=== PATIENT | female | born 2000 | race Caucasian/White ===

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

== ENCOUNTER 2020-01-29 14:10 | Emergency (ER) | payer BC, OTHER ==
[~2020-01-29] VITALS: Ht 170.2 cm; Wt 55.8 kg
[2020-01-29 14:48] LABS: BASOPHILS ABSOLUTE AUTO 0.06 K/mm3 (0.00-0.23); BASOPHILS PERCENT AUTO 0 % (0-2); EOSINOPHILS ABSOLUTE AUTO 0.22 K/mm3 (0.00-0.68); EOSINOPHILS PERCENT AUTO 1 % (0-6); Hematocrit 40.5 % (33.0-51.0); Hemoglobin 13.2 g/dL (11.5-16.0); IMMATURE GRAN PERCENT AUTO 1 % (0-1); LYMPHOCYTES ABSOLUTE AUTO 2.63 K/mm3 (0.84-5.20); LYMPHOCYTES PERCENT AUTO 12 % (21-46); MONOCYTES ABSOLUTE AUTO 1.66 K/mm3 (0.16-1.47); MONOCYTES PERCENT AUTO 8 % (4-13); Mean Corpuscular HGB 31.3 pg (26.0-34.0); Mean Corpuscular HGB Conc 32.6 g/dL (31.5-36.5); Mean Corpuscular Volume 96 fL (80-100); Mean Platelet Volume 9.9 fL (9.1-12.4); NEUTROPHILS ABSOLUTE AUTO 17.31 K/mm3 (1.96-9.15); NEUTROPHILS PERCENT AUTO 79 % (41-73); Platelet Count 299 K/mm3 (150-400); RDW Coefficient Variation 12.5 % (11.7-14.2); RDW Standard Deviation 44.3 fL (35.1-46.3); Red Blood Cell Count 4.22 M/mm3 (3.80-5.20); White Blood Cell Count 21.98 K/mm3 (4.00-11.30)
[2020-01-29 15:23] LABS: Alanine Aminotransfer (ALT/SGP 15 U/L (12-78); Albumin, Blood 3.2 g/dL (3.4-5.0); Albumin/Globulin Ratio 0.8 (0.8-1.8); Alk Phos 118 U/L (45-116); Anion Gap 8 mmol/L (6-16); Aspartate Aminotrans (AST/SGOT 11 U/L (12-37); Bilirubin, Total 0.2 mg/dL (0.1-1.0); Blood Urea Nitrogen 11 mg/dL (8-21); Bun/Creatinine Ratio 17.9 (12.0-20.0); CO2, Blood 26 mmol/L (21-32); Calcium, Blood 8.8 mg/dL (8.5-10.1); Chloride, Blood 104 mmol/L (98-108); Creatinine, Blood 0.61 mg/dL (0.40-1.00); Globulin, Blood 4.1 g/dL (2.2-4.0); Glomerular Filtration Rate >60 (60-); Glucose, Blood 80 mg/dL (70-99); Potassium, Blood 3.4 mmol/L (3.5-5.5); Sodium, Blood 138 mmol/L (136-145); Total Protein, Blood 7.3 g/dL (6.4-8.2)
[2020-01-29] MEDS ORDERED: Cleocin HCl300 MG PO (16:24)
[2020-01-29] MEDS ORDERED: Norco 5-325 Ta1 EACH PO (16:24)
== END 2020-01-29 16:50 | disposition home or self-care (01) ==
LOC: ER 14:10
PROVIDERS: Emergency Medicine
DX: L02.414 Cutaneous abscess of left upper limb (principal); L03.114 Cellulitis of left upper limb; F31.9 Bipolar disorder, unspecified; F43.10 Post-traumatic stress disorder, unspecified; F17.210 Nicotine dependence, cigarettes, uncomplicated
CPT/HCPCS: 10061; 36415; 80053; 85025; 87070; 87075; 87147; 87205; 99283-25; A9270-GY

== ENCOUNTER 2020-04-15 22:58 | Emergency (ER) | payer BC, OTHER ==
[~2020-04-15] VITALS: Ht 165.1 cm; Wt 49.9 kg
[~2020-04-15 22:58] MED LIST changes: +Cleocin HCl300 MG PO; +Norco 5-325 Ta1 EACH PO
[2020-04-15 23:51] LABS: BASOPHILS ABSOLUTE AUTO 0.04 K/mm3 (0.00-0.23); BASOPHILS PERCENT AUTO 0 % (0-2); EOSINOPHILS ABSOLUTE AUTO 0.17 K/mm3 (0.00-0.68); EOSINOPHILS PERCENT AUTO 2 % (0-6); Hematocrit 38.3 % (33.0-51.0); Hemoglobin 12.8 g/dL (11.5-16.0); IMMATURE GRAN ABSOLUTE AUTO 0.02 K/mm3 (0.00-0.10); IMMATURE GRAN PERCENT AUTO 0 % (0-1); LYMPHOCYTES ABSOLUTE AUTO 2.28 K/mm3 (0.84-5.20); LYMPHOCYTES PERCENT AUTO 25 % (21-46); MONOCYTES ABSOLUTE AUTO 0.73 K/mm3 (0.16-1.47); MONOCYTES PERCENT AUTO 8 % (4-13); Mean Corpuscular HGB 31.4 pg (26.0-34.0); Mean Corpuscular HGB Conc 33.4 g/dL (31.5-36.5); Mean Corpuscular Volume 94 fL (80-100); NEUTROPHILS ABSOLUTE AUTO 5.95 K/mm3 (1.96-9.15); NEUTROPHILS PERCENT AUTO 65 % (41-73); Platelet Count 285 K/mm3 (150-400); RDW Coefficient Variation 13.1 % (11.7-14.2); RDW Standard Deviation 45.2 fL (35.1-46.3); Red Blood Cell Count 4.07 M/mm3 (3.80-5.20); White Blood Cell Count 9.19 K/mm3 (4.00-11.30)
[2020-04-16 00:13] LABS: Alanine Aminotransfer (ALT/SGP 17 U/L (12-78); Albumin, Blood 3.5 g/dL (3.4-5.0); Alk Phos 91 U/L (45-116); Anion Gap 6 mmol/L (6-16); Aspartate Aminotrans (AST/SGOT 16 U/L (12-37); Bilirubin, Total 0.2 mg/dL (0.1-1.0); Blood Urea Nitrogen 13 mg/dL (8-21); Bun/Creatinine Ratio 14.8 (12.0-20.0); CO2, Blood 30 mmol/L (21-32); Chloride, Blood 108 mmol/L (98-108); Creatinine, Blood 0.88 mg/dL (0.40-1.00); Globulin, Blood 3.4 g/dL (2.2-4.0); Glomerular Filtration Rate >60 (60-); Glucose, Blood 87 mg/dL (70-99); Potassium, Blood 3.3 mmol/L (3.5-5.5); Sodium, Blood 144 mmol/L (136-145); Total Protein, Blood 6.9 g/dL (6.4-8.2)
[2020-04-16 00:55] LABS: Source, Urine Clean Catch
[2020-04-16 00:59] LABS: Appearance, Urine Clear (Clear); Bilirubin, Urine Neg (Neg); Blood, Urine Neg (Neg); Color, Urine Yellow (P-Yellow); Glucose Qualitative, Urine Neg (Neg); Ketones, Urine Neg (Neg); Leukocyte Esterase, Urine 2+ (Neg); Nitrite, Urine Neg (Neg); Protein, Urine Neg (Neg); Specific Gravity, Urine 1.025 (1.003-1.022); Urobilinogen, Urine NORM (Normal)
[2020-04-16 01:05] LABS: Bacteria Many /hpf; Squamous Epithelial Cells Mod /hpf (Few)
[2020-04-16 01:06] LABS: Mucus Light (0-Heavy)
[2020-04-16] MEDS ORDERED: Vibramycin100 MG PO (01:38)
== END 2020-04-16 02:17 | disposition home or self-care (01) ==
LOC: ER 22:58
PROVIDERS: Emergency Medicine
DX: N39.0 Urinary tract infection, site not specified (principal); F31.9 Bipolar disorder, unspecified; F17.200 Nicotine dependence, unspecified, uncomplicated; Z88.2 Allergy status to sulfonamides; Z79.899 Other long term (current) drug therapy
CPT/HCPCS: 36415; 72192; 80053; 81001; 81025; 85025; 87086; 96372; 96374; 96375; 99284-25; A9270; A9270-GY; J0696; J2405; J3010; J7030

== ENCOUNTER 2020-05-23 22:38 | Emergency (ER) | payer BC, OTHER ==
[~2020-05-23] VITALS: Ht 170.2 cm; Wt 59.0 kg
[~2020-05-23 22:38] MED LIST changes: +Vibramycin100 MG PO
[2020-05-23 23:32] LABS: BASOPHILS ABSOLUTE AUTO 0.02 K/mm3 (0.00-0.23); BASOPHILS PERCENT AUTO 0 % (0-2); EOSINOPHILS ABSOLUTE AUTO 0.09 K/mm3 (0.00-0.68); EOSINOPHILS PERCENT AUTO 1 % (0-6); Hematocrit 42.1 % (33.0-51.0); Hemoglobin 13.5 g/dL (11.5-16.0); IMMATURE GRAN ABSOLUTE AUTO 0.01 K/mm3 (0.00-0.10); IMMATURE GRAN PERCENT AUTO 0 % (0-1); LYMPHOCYTES ABSOLUTE AUTO 2.77 K/mm3 (0.84-5.20); LYMPHOCYTES PERCENT AUTO 32 % (21-46); MONOCYTES ABSOLUTE AUTO 0.78 K/mm3 (0.16-1.47); MONOCYTES PERCENT AUTO 9 % (4-13); Mean Corpuscular HGB 30.4 pg (26.0-34.0); Mean Corpuscular HGB Conc 32.1 g/dL (31.5-36.5); Mean Corpuscular Volume 95 fL (80-100); Mean Platelet Volume 9.9 fL (9.1-12.4); NEUTROPHILS ABSOLUTE AUTO 5.13 K/mm3 (1.96-9.15); NEUTROPHILS PERCENT AUTO 58 % (41-73); Platelet Count 328 K/mm3 (150-400); RDW Coefficient Variation 12.7 % (11.7-14.2); RDW Standard Deviation 45.1 fL (35.1-46.3); Red Blood Cell Count 4.44 M/mm3 (3.80-5.20)
[2020-05-23 23:50] LABS: Alanine Aminotransfer (ALT/SGP 19 U/L (12-78); Albumin, Blood 3.7 g/dL (3.4-5.0); Alk Phos 85 U/L (45-116); Anion Gap 5 mmol/L (6-16); Aspartate Aminotrans (AST/SGOT 18 U/L (12-37); Bilirubin, Total 0.2 mg/dL (0.1-1.0); Blood Urea Nitrogen 18 mg/dL (8-21); Bun/Creatinine Ratio 23.9 (12.0-20.0); CO2, Blood 30 mmol/L (21-32); Chloride, Blood 105 mmol/L (98-108); Creatinine, Blood 0.75 mg/dL (0.40-1.00); Globulin, Blood 3.7 g/dL (2.2-4.0); Glomerular Filtration Rate >60 (60-); Glucose, Blood 73 mg/dL (70-99); Potassium, Blood 3.9 mmol/L (3.5-5.5); Sodium, Blood 140 mmol/L (136-145); Total Protein, Blood 7.4 g/dL (6.4-8.2)
[2020-05-24 00:07] LABS: Source, Urine Clean Catch
[2020-05-24 00:11] LABS: Appearance, Urine Clear (Clear); Bilirubin, Urine Neg (Neg); Blood, Urine Neg (Neg); Color, Urine Yellow (P-Yellow); Glucose Qualitative, Urine Neg (Neg); Ketones, Urine Neg (Neg); Leukocyte Esterase, Urine 1+ (Neg); Nitrite, Urine Neg (Neg); Protein, Urine Neg (Neg); Specific Gravity, Urine 1.015 (1.003-1.022); Urobilinogen, Urine NORM (Normal); pH, Urine 6.5 (5.0-8.0)
[2020-05-24 00:16] LABS: Amorphous Mod (0-Heavy); Bacteria Few /hpf; Red Blood Cells, Urine 0-2 /hpf (0-2); Squamous Epithelial Cells Few /hpf (Few); White Blood Cells, Urine 0-2 /hpf (0-5)
== END 2020-05-24 02:38 | disposition home or self-care (01) ==
LOC: ER 22:38
PROVIDERS: Emergency Medicine
DX: O99.891 Other specified diseases and conditions complicating pregnancy (principal); R10.13 Epigastric pain; O99.331 Smoking (tobacco) complicating pregnancy, first trimester; F17.210 Nicotine dependence, cigarettes, uncomplicated; Z3A.01 Less than 8 weeks gestation of pregnancy; Z88.2 Allergy status to sulfonamides
CPT/HCPCS: 36415; 76801; 76817; 80053; 81001; 84702; 85025; 86900; 86901; 87086; 99284-25

== ENCOUNTER 2020-07-05 22:25 | Emergency (ER) | payer BC, OTHER ==
[~2020-07-05] VITALS: Ht 170.2 cm; Wt 61.7 kg
[2020-07-05] MEDS ORDERED: [UNRECOGNIZED DRUG - OTHER] (22:51)
[2020-07-05] MEDS ORDERED: CYAN500 PO (22:51)
[2020-07-05] MEDS ORDERED: WESTAB PLUS TA1 EACH PO (22:51)
[2020-07-05 23:31] LABS: BASOPHILS ABSOLUTE AUTO 0.02 K/mm3 (0.00-0.23); BASOPHILS PERCENT AUTO 0 % (0-2); EOSINOPHILS PERCENT AUTO 1 % (0-6); Hematocrit 36.9 % (33.0-51.0); Hemoglobin 12.5 g/dL (11.5-16.0); IMMATURE GRAN ABSOLUTE AUTO 0.03 K/mm3 (0.00-0.10); IMMATURE GRAN PERCENT AUTO 0 % (0-1); LYMPHOCYTES ABSOLUTE AUTO 2.57 K/mm3 (0.84-5.20); LYMPHOCYTES PERCENT AUTO 27 % (21-46); MONOCYTES ABSOLUTE AUTO 0.86 K/mm3 (0.16-1.47); MONOCYTES PERCENT AUTO 9 % (4-13); Mean Corpuscular HGB 32.2 pg (26.0-34.0); Mean Corpuscular HGB Conc 33.9 g/dL (31.5-36.5); Mean Corpuscular Volume 95 fL (80-100); Mean Platelet Volume 10.1 fL (9.1-12.4); NEUTROPHILS ABSOLUTE AUTO 5.85 K/mm3 (1.96-9.15); NEUTROPHILS PERCENT AUTO 62 % (41-73); Platelet Count 247 K/mm3 (150-400); RDW Coefficient Variation 13.4 % (11.7-14.2); RDW Standard Deviation 47.4 fL (35.1-46.3); Red Blood Cell Count 3.88 M/mm3 (3.80-5.20); White Blood Cell Count 9.43 K/mm3 (4.00-11.30)
[2020-07-05 23:46] LABS: Alanine Aminotransfer (ALT/SGP 17 U/L (12-78); Albumin, Blood 3.2 g/dL (3.4-5.0); Albumin/Globulin Ratio 0.9 (0.8-1.8); Alk Phos 56 U/L (45-116); Anion Gap 7 mmol/L (6-16); Aspartate Aminotrans (AST/SGOT 10 U/L (12-37); Bilirubin, Total 0.3 mg/dL (0.1-1.0); Blood Urea Nitrogen 9 mg/dL (8-21); Bun/Creatinine Ratio 15.1 (12.0-20.0); CO2, Blood 27 mmol/L (21-32); Calcium, Blood 8.7 mg/dL (8.5-10.1); Chloride, Blood 106 mmol/L (98-108); Globulin, Blood 3.4 g/dL (2.2-4.0); Glomerular Filtration Rate >60 (60-); Glucose, Blood 64 mg/dL (70-99); Potassium, Blood 3.3 mmol/L (3.5-5.5); Sodium, Blood 140 mmol/L (136-145); Total Protein, Blood 6.6 g/dL (6.4-8.2)
[2020-07-05 23:47] LABS: Source, Urine Clean Catch
[2020-07-06 00:21] LABS: Appearance, Urine Clear (Clear); Bilirubin, Urine Neg (Neg); Blood, Urine Neg (Neg); Color, Urine Yellow (P-Yellow); Glucose Qualitative, Urine Neg (Neg); Ketones, Urine Neg (Neg); Leukocyte Esterase, Urine 3+ (Neg); Nitrite, Urine Neg (Neg); Protein, Urine Neg (Neg); Specific Gravity, Urine 1.025 (1.003-1.022); Urobilinogen, Urine NORM (Normal)
[2020-07-06 00:40] LABS: Bacteria Few /hpf; Red Blood Cells, Urine Not Seen /hpf (0-2); Squamous Epithelial Cells Few /hpf (Few); Trichomonas Few /hpf
[2020-07-06 01:18] LABS: U Amphetamine Screen Not Detected; U Barbituate Screen Not Detected; U Benzodiazapine Screen Not Detected; U Buprenorphine Screen Not Detected; U Cannabinoids Screen DETECTED; U Cocaine Screen Not Detected; U Methadone Screen Not Detected; U Methamphetamine Screen Not Detected; U Opiates Screen Not Detected; U Oxycodone Screen Not Detected; U Phencyclidine Screen Not Detected; U Propoxyphene Screen Not Detected
[2020-07-06] MEDS ORDERED: CEFP200 PO (01:39)
== END 2020-07-06 02:05 | disposition home or self-care (01) ==
LOC: ER 22:25
PROVIDERS: Emergency Medicine
DX: O23.41 Unspecified infection of urinary tract in pregnancy, first trimester (principal); O99.331 Smoking (tobacco) complicating pregnancy, first trimester; F17.210 Nicotine dependence, cigarettes, uncomplicated; Z3A.11 11 weeks gestation of pregnancy; Z88.2 Allergy status to sulfonamides
CPT/HCPCS: 36415; 80053; 81001; 83690; 85025; 87086; 96365; 99284; J0696; J7030

== ENCOUNTER 2020-10-27 17:51 | Emergency (ER) | payer BC, OTHER ==
[~2020-10-27] VITALS: Ht 170.2 cm; Wt 63.5 kg
[~2020-10-27 17:51] MED LIST changes: +CEFP200 PO; +CYAN500 PO; +WESTAB PLUS TA1 EACH PO; +[UNRECOGNIZED DRUG - OTHER]
[2020-10-27] MEDS ORDERED: ALBU90OI INH (19:40)
[2020-10-27] MEDS ORDERED: SPACE CHAMBER1 EACH XX (19:40)
== END 2020-10-27 19:47 | disposition home or self-care (01) ==
LOC: ER 17:51
DX: R05 Cough (principal); R06.2 Wheezing; F17.210 Nicotine dependence, cigarettes, uncomplicated; Z88.2 Allergy status to sulfonamides; Z79.899 Other long term (current) drug therapy; Z20.822 Contact with and (suspected) exposure to COVID-19
CPT/HCPCS: 99283

== ENCOUNTER 2020-12-28 16:40 | Inpatient (IN) | payer BC, OTHER ==
[~2020-12-28] VITALS: Ht 167.6 cm; Wt 59.0 kg
[~2020-12-28 16:40] MED LIST changes: +SPACE CHAMBER1 EACH XX
[2020-12-28 17:34] LABS: BASOPHILS ABSOLUTE AUTO 0.03 K/mm3 (0.00-0.23); BASOPHILS PERCENT AUTO 0 % (0-2); EOSINOPHILS ABSOLUTE AUTO 0.06 K/mm3 (0.00-0.68); EOSINOPHILS PERCENT AUTO 1 % (0-6); Hematocrit 36.5 % (33.0-51.0); Hemoglobin 12.1 g/dL (11.5-16.0); IMMATURE GRAN ABSOLUTE AUTO 0.04 K/mm3 (0.00-0.10); IMMATURE GRAN PERCENT AUTO 0 % (0-1); LYMPHOCYTES ABSOLUTE AUTO 2.69 K/mm3 (0.84-5.20); LYMPHOCYTES PERCENT AUTO 24 % (21-46); MONOCYTES PERCENT AUTO 6 % (4-13); Mean Corpuscular HGB 30.1 pg (26.0-34.0); Mean Corpuscular HGB Conc 33.2 g/dL (31.5-36.5); Mean Corpuscular Volume 91 fL (80-100); Mean Platelet Volume 12.5 fL (9.1-12.4); NEUTROPHILS ABSOLUTE AUTO 7.66 K/mm3 (1.96-9.15); NEUTROPHILS PERCENT AUTO 68 % (41-73); Platelet Count 186 K/mm3 (150-400); RDW Coefficient Variation 14.2 % (11.7-14.2); RDW Standard Deviation 47.8 fL (35.1-46.3); Red Blood Cell Count 4.02 M/mm3 (3.80-5.20); White Blood Cell Count 11.18 K/mm3 (4.00-11.30)
[2020-12-28 17:47] LABS: Alanine Aminotransfer (ALT/SGP 11 U/L (12-78); Albumin, Blood 2.5 g/dL (3.4-5.0); Albumin/Globulin Ratio 0.7 (0.8-1.8); Alk Phos 347 U/L (50-136); Anion Gap 3 mmol/L (6-16); Aspartate Aminotrans (AST/SGOT 17 U/L (12-37); Bilirubin, Total 0.2 mg/dL (0.1-1.0); Blood Urea Nitrogen 13 mg/dL (8-24); Bun/Creatinine Ratio 16.6 (12.0-20.0); CO2, Blood 25 mmol/L (21-32); Calcium, Blood 8.6 mg/dL (8.5-10.1); Chloride, Blood 110 mmol/L (98-108); Creatinine, Blood 0.78 mg/dL (0.40-1.00); Globulin, Blood 3.8 g/dL (2.2-4.0); Glomerular Filtration Rate >60 (60-); Glucose, Blood 100 mg/dL (70-99); Potassium, Blood 3.8 mmol/L (3.5-5.5); Sodium, Blood 138 mmol/L (136-145); Total Protein, Blood 6.3 g/dL (6.4-8.2)
--- NOTE | 2020-12-28 18:48 | NUR ---
SI CLEARED PER DR HO ORDER PLACED
[2020-12-28 19:27] LABS: SARS-Cov-2 (COVID-19) PCR, MMC NEGATIVE (NEGATIVE)
[2020-12-28 20:18] LABS: PCO2 Cord - Arterial 57.1 mmHg (40-50); PO2 Cord - Arterial < 13 mmHg (16-20); pH Cord - Arterial 7.27 (7.28-7.35)
[2020-12-28 20:19] LABS: pH Umbilical Cord - Venous 7.32 (7.26-7.35)
--- NOTE | 2020-12-29 01:39 | NUR ---
ABDOMINAL INCISION DRESSING LEAKING SEROUSANGUINOUS FLUID COVERING ENTIRE DRESSING. RN REINFORCED WITH ABDOMINAL PAD AND MEDIPORE TAPE.
[2020-12-29 06:34] LABS: BASOPHILS ABSOLUTE AUTO 0.04 K/mm3 (0.00-0.23); BASOPHILS PERCENT AUTO 0 % (0-2); EOSINOPHILS ABSOLUTE AUTO 0.09 K/mm3 (0.00-0.68); EOSINOPHILS PERCENT AUTO 1 % (0-6); Hemoglobin 10.6 g/dL (11.5-16.0); IMMATURE GRAN ABSOLUTE AUTO 0.05 K/mm3 (0.00-0.10); IMMATURE GRAN PERCENT AUTO 0 % (0-1); LYMPHOCYTES ABSOLUTE AUTO 3.48 K/mm3 (0.84-5.20); LYMPHOCYTES PERCENT AUTO 27 % (21-46); MONOCYTES ABSOLUTE AUTO 0.83 K/mm3 (0.16-1.47); MONOCYTES PERCENT AUTO 6 % (4-13); Mean Corpuscular HGB 30.3 pg (26.0-34.0); Mean Corpuscular HGB Conc 33.1 g/dL (31.5-36.5); Mean Corpuscular Volume 91 fL (80-100); Mean Platelet Volume 11.6 fL (9.1-12.4); NEUTROPHILS ABSOLUTE AUTO 8.63 K/mm3 (1.96-9.15); NEUTROPHILS PERCENT AUTO 66 % (41-73); Platelet Count 161 K/mm3 (150-400); RDW Coefficient Variation 14.2 % (11.7-14.2); RDW Standard Deviation 47.6 fL (35.1-46.3); White Blood Cell Count 13.12 K/mm3 (4.00-11.30)
--- NOTE | 2020-12-29 14:20 | NUR ---
NAPPING STATES PAIN IS BETTER
--- NOTE | 2020-12-29 15:24 | NUR ---
PT AWAKE GOING TO PUMP
--- NOTE | 2020-12-29 19:11 | NUR ---
PT [place] FOR SELF AND NB WELL PUMPING AND BOTTLE FEEDING NB HAVING GOOD PAIN CONTROL WITH PO MEDS STATES SHOULDER PAIN MUCH BETTER SHE IS NOT PASSING GAS REPT TO PM SHIFT
--- NOTE | 2020-12-30 10:04 | NUR ---
PATIENT SLEEPNG FOR THIS RN SHIFT WOKE PATIENT AT 0730 SHE STATES BABY ATE AT 0630, ENCOURAGED TO PUMP AND FEED BEFORE 0930, AT 0915 PATIENT STILL SLEEP WOKE PATIENT TO PUMP AND WENT BACK IN AT 0945 PATIENT STILL SLEEPING TOLD PATIENT WAS TAKING BABY TO NURSERY SHE CANT GO PAST 3 HOURS AND SHE SAID THANKS AND ROLLED BACK OVER TO SLEEP
--- NOTE | 2020-12-30 11:20 | NUR ---
INTO ROOM PATIENT SLEEPING ENCOURAGED TO PUMP FOR NEXT FEED DO
--- NOTE | 2020-12-30 11:58 | NUR ---
baby awake taken back into room for mom to feed mom pumped 45cc,
--- NOTE | 2020-12-30 15:49 | NUR ---
NEW STERISTRIPS PLACED
--- NOTE | 2020-12-31 08:08 | NUR ---
PATIENT B/P INCREASED WAS RESTING WHEN TAKEN, DENIES VISUAL DISTURBANCES, EPIGASTIC PAIN OR HEADACHE DTR +1 AND NO CLONUS, VOIDING OFTEN
--- NOTE | 2020-12-31 08:22 | NUR ---
IN TO DO ASSSESSMENT ASK PATIENT HOW MUCH BABY AT AT 0600 FEED SHE STATED SHE NEVER WOKE UP TO FEED HER ENCOURAGED HER TO SET A;ARM ON PHONE SHE HAS TO FEED BABY EVERY 2-3 HOURS FEEDING NOW
[2020-12-31] MEDS ORDERED: ROXICODONE5 MG (12:33)
--- NOTE | 2020-12-31 15:44 | NUR ---
DR HAMEED UPDATED OF PATIENT VERY TEARFUL AFTER A LONG ENCOURAGEMENT WITH PATIENT PLANNED FOR PATIENT TO MAKE COMPASS APPOINTMENT AND ALLOW SUPPORT PERSON KELSEA TO SO NEXT FEW BOTTLE FEEDS SO PATIENT CAN SLEEP PATIENT DENIES WANTING MEDICATION FOR DEPRESSION, HR 139 WITH CRYING IN 90s WHEN AT REST, PATIENT MEDICATIONS HERE FROM PHARMACY PATIENT MOVED TO BOARDER STATUS PER DR HAMEED, PATIENT OUT TO [facility] THEN SHOWED WITH PLANS TO GO TO SLEEP AND REST
--- NOTE | 2021-01-03 08:18 | NUR ---
PRESCRIPTION FOR BREAST PUMP FILLED. PT HAS NO QUESTIONS OR CONCERNS AT THIS TIME.
--- NOTE | 2021-01-03 16:20 | NUR ---
LATE ENTRY PER RN AND EMR OR SURGICAL CHECKLIST COMPLETED PRIOR TO SURGERY
== END 2020-12-31 17:35 | disposition home or self-care (01) | DRG 787 ==
LOC: BC 16:40 → OBS 16:40 → BC 17:46 → OBS 17:46 → BC 17:46
PROVIDERS: Obstetrics & Gynecology; ADMIT Obstetrics & Gynecology
PROC: 10D00Z1 Extraction of Products of Conception, Low, Open Approach (ICD-10-PCS; principal; 2020-12-28 18:30)
DX: O76 Abnormality in fetal heart rate and rhythm complicating labor and delivery (principal); O41.03X0 Oligohydramnios, third trimester, not applicable or unspecified; O44.23 Partial placenta previa NOS or without hemorrhage, third trimester; O99.324 Drug use complicating childbirth; Z20.822 Contact with and (suspected) exposure to COVID-19; Z3A.36 36 weeks gestation of pregnancy; Z37.0 Single live birth; O99.334 Smoking (tobacco) complicating childbirth; F17.210 Nicotine dependence, cigarettes, uncomplicated; F12.20 Cannabis dependence, uncomplicated; O77.0 Labor and delivery complicated by meconium in amniotic fluid; F19.11 Other psychoactive substance abuse, in remission; O99.344 Other mental disorders complicating childbirth; F41.8 Other specified anxiety disorders; F43.10 Post-traumatic stress disorder, unspecified; O13.5 Gestational [pregnancy-induced] hypertension without significant proteinuria, complicating the puerperium; Z60.9 Problem related to social environment, unspecified; Z88.2 Allergy status to sulfonamides
CPT/HCPCS: 36415; 76819; 80053; 82803; 85025; 86850; 86900; 86901; 93005; 93010; A9270; J0690; J1885; J2175; J2405; J2590; J2704; J2765; J7120; U0004

== ENCOUNTER → 2021-08-16 | Outpatient (CLI) | payer BC, OTHER ==
[~2021-08-16] MED LIST changes: +ROXICODONE5 MG
[2021-08-18 03:09] LABS: CHLAMYDIA TRACHOMATIS, NAA Negative (Negative)
== END | disposition home or self-care (01) ==
LOC: LAB SHORT 15:43
PROVIDERS: Advanced Practice Midwife
DX: Z11.3 Encounter for screening for infections with a predominantly sexual mode of transmission (principal)
CPT/HCPCS: 87491; 87591

== ENCOUNTER → 2022-06-13 | Outpatient (CLI) | payer BC, OTHER ==
[2022-06-15 13:10] LABS: CHLAMYDIA BY NAA Negative (Negative); GONOCOCCUS BY NAA Negative (Negative); TRICH VAG BY NAA Negative (Negative)
== END | disposition home or self-care (01) ==
LOC: RAD SHORT 12:22
PROVIDERS: Obstetrics & Gynecology
DX: Z01.419 Encounter for gynecological examination (general) (routine) without abnormal findings (principal); Z11.3 Encounter for screening for infections with a predominantly sexual mode of transmission
CPT/HCPCS: 87491; 87591; 87661; G0145

== ENCOUNTER → 2023-03-07 | Outpatient (CLI) | payer BC, OTHER ==
[2023-03-08 11:59] LABS: Candida species (DNA Probe) Negative (NEGATIVE); G. vaginalis (DNA Probe) Positive (NEGATIVE); T. vaginalis (DNA Probe) Negative (NEGATIVE)
[2023-03-09 00:07] LABS: CHLAMYDIA TRACHOMATIS, NAA Positive (Negative)
== END ==
LOC: LAB SHORT 17:25 → LAB 17:25
PROVIDERS: Advanced Practice Midwife
DX: Z11.3 Encounter for screening for infections with a predominantly sexual mode of transmission (principal); N76.0 Acute vaginitis
CPT/HCPCS: 87480; 87491; 87510; 87591; 87660

== ENCOUNTER 2023-06-26 06:15 | Emergency (ER) | payer OTHER ==
[~2023-06-26] VITALS: Ht 170.2 cm; Wt 58.1 kg
[2023-06-26] MEDS ORDERED: [UNRECOGNIZED DRUG - REMARK] TOP (07:55)
[2023-06-26] MEDS ORDERED: PRENATAL TABLE1 EAC9 PO (07:55)
[2023-06-26] MEDS ORDERED: CEPH500 PO (09:01)
[2023-06-26] MEDS ORDERED: CLIN150 PO (09:01)
[2023-06-26 09:30] VITALS: BP 109/73
== END 2023-06-26 09:32 | disposition home or self-care (01) ==
LOC: ER 06:15
DX: L02.511 Cutaneous abscess of right hand (principal); Z91.018 Allergy to other foods; Z88.2 Allergy status to sulfonamides; Z79.899 Other long term (current) drug therapy; G43.909 Migraine, unspecified, not intractable, without status migrainosus
CPT/HCPCS: 99283

== ENCOUNTER 2023-06-28 18:01 | Inpatient (IN) | payer OTHER ==
[~2023-06-28] VITALS: Ht 170.2 cm; Wt 59.6 kg
[~2023-06-28 18:01] MED LIST changes: +CEPH500 PO; +CLIN150 PO; +PRENATAL TABLE1 EAC9 PO; +[UNRECOGNIZED DRUG - REMARK] TOP
[2023-06-28 18:35] LABS: BASOPHILS ABSOLUTE AUTO 0.04 K/mm3 (0.00-0.23); BASOPHILS PERCENT AUTO 0 % (0-2); EOSINOPHILS ABSOLUTE AUTO 0.37 K/mm3 (0.00-0.68); EOSINOPHILS PERCENT AUTO 2 % (0-6); Hemoglobin 12.7 g/dL (11.5-16.0); IMMATURE GRAN ABSOLUTE AUTO 0.04 K/mm3 (0.00-0.10); IMMATURE GRAN PERCENT AUTO 0 % (0-1); LYMPHOCYTES ABSOLUTE AUTO 3.19 K/mm3 (0.84-5.20); LYMPHOCYTES PERCENT AUTO 21 % (21-46); MONOCYTES ABSOLUTE AUTO 1.18 K/mm3 (0.16-1.47); MONOCYTES PERCENT AUTO 8 % (4-13); Mean Corpuscular HGB 31.8 pg (26.0-34.0); Mean Corpuscular HGB Conc 32.6 g/dL (31.5-36.5); Mean Corpuscular Volume 98 fL (80-100); Mean Platelet Volume 10.7 fL (9.1-12.4); NEUTROPHILS ABSOLUTE AUTO 10.44 K/mm3 (1.96-9.15); NEUTROPHILS PERCENT AUTO 68 % (41-73); Platelet Count 220 K/mm3 (150-400); RDW Coefficient Variation 12.5 % (11.7-14.2); RDW Standard Deviation 44.8 fL (35.1-46.3); Red Blood Cell Count 3.99 M/mm3 (3.80-5.20); White Blood Cell Count 15.26 K/mm3 (4.00-11.30)
[2023-06-28 19:55] LABS: Alanine Aminotransfer (ALT/SGP 11 U/L (12-78); Albumin, Blood 3.5 g/dL (3.4-5.0); Alk Phos 71 U/L (50-136); Anion Gap Unable to Calculate mmol/L (6-16); Aspartate Aminotrans (AST/SGOT 14 U/L (12-37); Bilirubin, Total 0.4 mg/dL (0.1-1.0); Blood Urea Nitrogen 19 mg/dL (8-24); Bun/Creatinine Ratio 20.8 (12.0-20.0); CO2, Blood 31 mmol/L (21-32); Calcium, Blood 8.9 mg/dL (8.5-10.1); Chloride, Blood 109 mmol/L (98-108); Creatinine, Blood 0.92 mg/dL (0.40-1.00); Globulin, Blood 3.5 g/dL (2.2-4.0); Glomerular Filtration Rate 90 (60-); Glucose, Blood 93 mg/dL (70-99); Sodium, Blood 139 mmol/L (136-145)
[2023-06-28] MEDS ORDERED: CeFAZolin Sodium 2,000 MG in NS 50 ML IV ONE (20:20)
[2023-06-28] MEDS ORDERED: Ondansetron HCl 2 MG / ML 2ML Vial IV ONE (20:25)
[2023-06-28] MEDS ORDERED: HYDROmorphone HCl/Pf 1MG SYR IV ONE (20:25)
[2023-06-28] MEDS ORDERED: Ketorolac Tromethamine 30mg Vial IV ONE (20:25)
[2023-06-28] MEDS ORDERED: FLU VACC QS2023-24(6MOS UP)/PF 60 MCG/0.5 ML SYRINGE IM SCH (20:50)
[2023-06-28] MEDS ORDERED: OxyCODONE HCL 5 MG TAB PO PRN (20:50)
[2023-06-28] MEDS ORDERED: Ondansetron HCl 2 MG / ML 2ML Vial IV PRN (20:50)
[2023-06-28] MEDS ORDERED: Ketorolac Tromethamine 15mg Vial IV PRN (20:55)
[2023-06-28] MEDS ORDERED: Acetaminophen 325 MG TABLET PO PRN (20:55)
[2023-06-28] MEDS ORDERED: Docusate Sodium 100 MG Cap PO SCH (21:00)
[2023-06-28] MEDS ORDERED: Lactobacil 2-S.Thermo-Bifido 1 1 Cap PO SCH (21:00)
[2023-06-28] MEDS ORDERED: Vancomycin HCL 1,500 MG in NS 250 ML IV ONE (21:05)
[2023-06-28] MEDS ORDERED: CefTRIAXone Sodium 1,000 MG in NS 50 ML IV SCH (22:00)
[2023-06-28 22:38] VITALS: BP 102/46
[2023-06-28] MEDS ORDERED: NS 250 ML IV PRN (23:45)
[2023-06-29] MEDS ORDERED: DiphenhydrAMINE HCl 50 MG Cap PO ONE (01:00)
[2023-06-29] MEDS ORDERED: DiphenhydrAMINE HCl 50 MG Cap PO PRN (01:00)
[2023-06-29 04:28] VITALS: BP 103/57
[2023-06-29 05:22] LABS: BASOPHILS ABSOLUTE AUTO 0.03 K/mm3 (0.00-0.23); BASOPHILS PERCENT AUTO 0 % (0-2); EOSINOPHILS ABSOLUTE AUTO 0.27 K/mm3 (0.00-0.68); EOSINOPHILS PERCENT AUTO 2 % (0-6); Hematocrit 36.4 % (33.0-51.0); IMMATURE GRAN ABSOLUTE AUTO 0.04 K/mm3 (0.00-0.10); IMMATURE GRAN PERCENT AUTO 0 % (0-1); LYMPHOCYTES ABSOLUTE AUTO 3.48 K/mm3 (0.84-5.20); LYMPHOCYTES PERCENT AUTO 29 % (21-46); MONOCYTES PERCENT AUTO 8 % (4-13); Mean Corpuscular Volume 97 fL (80-100); Mean Platelet Volume 11.2 fL (9.1-12.4); NEUTROPHILS ABSOLUTE AUTO 7.38 K/mm3 (1.96-9.15); NEUTROPHILS PERCENT AUTO 61 % (41-73); Platelet Count 192 K/mm3 (150-400); RDW Coefficient Variation 12.6 % (11.7-14.2); RDW Standard Deviation 45.2 fL (35.1-46.3); Red Blood Cell Count 3.75 M/mm3 (3.80-5.20)
[2023-06-29] MEDS ORDERED: Vancomycin HCL 1,000 MG in NS 100 ML IV SCH (06:00)
[2023-06-29 06:36] LABS: Albumin, Blood 2.9 g/dL (3.4-5.0); Bilirubin, Total 0.3 mg/dL (0.1-1.0); Bun/Creatinine Ratio 25.9 (12.0-20.0); Calcium, Blood 8.7 mg/dL (8.5-10.1); Creatinine, Blood 0.81 mg/dL (0.40-1.00); Magnesium, Blood 2.3 mg/dL (1.6-2.4); Potassium, Blood 3.8 mmol/L (3.5-5.5); Total Protein, Blood 5.9 g/dL (6.4-8.2)
[2023-06-29 07:41] VITALS: BP 97/53
--- NOTE | 2023-06-29 08:05 | NUR ---
SHIFT SUMMARY PT ARRIVED TO ROOM 309 FROM ER AROUND 2217 VIA WHEELCHAIR. SBA TRANSFER TO BED. A&OX4, VSS ON RA. C/O PAIN IN HER RIGHT HAND, MANAGED WITH PRN MEDICATION PER EMAR. PT ON REGULAR DIET AND HAD SNACKS UNTIL MIDNIGHT, THEN SHE WAS NPO. SBA TO BR. UNMEASURED VOID X1, NO BM THIS SHIFT. PT ASKED IF SHE COULD GO OUTSIDE AND SMOKE, I TOLD HER NO AND OFFERED TO CALL MD TO GET NICOTINE PATCH, PT DID NOT WANT THAT. BED IN LOWEST POSITION, CALL LIGHT WITHIN REACH. PT CALLS APPROPRIATELY.
[2023-06-29] MEDS ORDERED: Enoxaparin 40 MG/0.4 ML SYR SC SCH (09:00)
[2023-06-29] MEDS ORDERED: HYDROmorphone HCl/Pf 1MG SYR IV PRN ×2 (10:20)
[2023-06-29] MEDS ORDERED: HYDROmorphone HCl 2 MG Tab PO PRN (12:45)
[2023-06-29] MEDS ORDERED: NS 50 ML IV ONE (14:56)
--- NOTE | 2023-06-29 17:03 | NUR ---
PATIENT A/O X4, UP INDEPENDENTLY IN ROOM. VSS, ON RA. PAIN CONTROLLED WITH PO DILAUDID. RECEIVING VANCO AND ROCEPHIN. NPO TOMORROW AM AT 0600 FOR I&D OF R HAND. BENADRYL GIVEN X2 TODAY FOR INTCHING, NO VISIBLE RASH SEEN. PLEASANT AND COOPERATIVE WITH CARE. NO NEW CONCERNS THIS SHIFT.
[2023-06-29 17:04] VITALS: BP 114/71
[2023-06-29 19:28] VITALS: BP 96/58
[2023-06-29 21:48] LABS: Vancomycin, Trough 21.3 ug/mL (5.0-10.0)
[2023-06-30] VITALS (11 sets, daily range): BP systolic 95–142; BP diastolic 55–99
[2023-06-30] MEDS ORDERED: Vancomycin HCL 1,000 MG in NS 100 ML IV SCH (03:00)
[2023-06-30 05:49] LABS: BASOPHILS ABSOLUTE AUTO 0.04 K/mm3 (0.00-0.23); BASOPHILS PERCENT AUTO 0 % (0-2); EOSINOPHILS ABSOLUTE AUTO 0.33 K/mm3 (0.00-0.68); EOSINOPHILS PERCENT AUTO 3 % (0-6); Hematocrit 36.9 % (33.0-51.0); IMMATURE GRAN ABSOLUTE AUTO 0.03 K/mm3 (0.00-0.10); IMMATURE GRAN PERCENT AUTO 0 % (0-1); LYMPHOCYTES PERCENT AUTO 28 % (21-46); MONOCYTES PERCENT AUTO 7 % (4-13); Mean Corpuscular HGB 31.9 pg (26.0-34.0); Mean Corpuscular HGB Conc 32.5 g/dL (31.5-36.5); Mean Corpuscular Volume 98 fL (80-100); NEUTROPHILS ABSOLUTE AUTO 6.96 K/mm3 (1.96-9.15); NEUTROPHILS PERCENT AUTO 61 % (41-73); Platelet Count 200 K/mm3 (150-400); RDW Coefficient Variation 12.6 % (11.7-14.2); RDW Standard Deviation 45.7 fL (35.1-46.3); Red Blood Cell Count 3.76 M/mm3 (3.80-5.20); White Blood Cell Count 11.36 K/mm3 (4.00-11.30)
[2023-06-30 06:19] LABS: Bun/Creatinine Ratio 20.8 (12.0-20.0); Calcium, Blood 9.3 mg/dL (8.5-10.1); Creatinine, Blood 0.86 mg/dL (0.40-1.00); Potassium, Blood 3.8 mmol/L (3.5-5.5)
--- NOTE | 2023-06-30 07:51 | NUR ---
SHIFT SUMMARY PT A&OX4, VSS ON RA. NO ACUTE CHANGES THIS SHIFT. C/O PAIN IN HER R HAND, MANAGED WITH MEDICATIONS PER EMAR. PT STILL C/O ITCHING EVERYWHERE, BENADRYL GIVEN. TOLERATING A REGULAR DIET, NPO AFTER 0600 FOR PROCEDURE THIS MORNING. PT IS INDEPENDENT IN ROOM. VOIDING IN BR, NO BM THIS SHIFT. BED IN LOWEST POSITION, CALL LIGHT WITHIN REACH.
[2023-06-30] MEDS ORDERED: Lactated Ringer's 1,000 ML IV SCH (13:05)
[2023-06-30] MEDS ORDERED: propofoL 20 ML IV ONE (13:31)
[2023-06-30] MEDS ORDERED: Ketorolac Tromethamine 30mg Vial ONE (13:31)
[2023-06-30] MEDS ORDERED: FentaNYL Citrate 50 MCG/ML 2 ML Injection ONE (13:31)
[2023-06-30] MEDS ORDERED: Ondansetron HCl 2 MG / ML 2ML Vial ONE (13:31)
[2023-06-30] MEDS ORDERED: Dexamethasone Sod Phos 10 MG/ML 1ML VIAL ONE (13:31)
[2023-06-30] MEDS ORDERED: Bupivacaine HCl 2.5 MG/ML 10ML P/F Injection ONE (13:57)
--- NOTE | 2023-06-30 14:15 | NUR ---
PATIENT ARRIVED BACK FROM DAY SURGERY, POST I&D. ABLE TO TRANSFER INDEPENDENTLY TO BED. REPORTS PAIN 8/10 TO R HAND AND NUMBNESS WEARING OFF. VSS, ON RA. DRESSING TO R HAND REMAINS C/D/I.
--- NOTE | 2023-06-30 18:38 | NUR ---
PATIENT WENT FOR I&D OF R HAND TODAY. DRESSING REMAINS C/D/I. MEDICATING WITH DILAUDID AND TYLENOL FOR PAIN. 20G IV TO L UPPER ARM WNL. RECEIVING VANCO AND ROCEPHIN. TOLERATING REGULAR DIET. A/O X4, PLEASANT AND COOPERATIVE WITH CARE. NO NEW CONCERNS THIS SHIFT.
--- NOTE | 2023-06-30 18:40 | NUR ---
PATIENT WENT DOWN FOR I&D OF R HAND, DRESSING REMAINS C/D/I. PAIN CONTROLLED WITH DILAUDID AND TYLENOL. TOLERATING DIET. PATIENT A/OX4, INDEPENDENT IN ROOM. PLEASANT AND COOPERATIVE WITH CARE. NO NEW CONCERNS THIS SHIFT.
[2023-07-01 02:27] VITALS: BP 100/63
[2023-07-01 02:27] LABS: Vancomycin, Trough 9.4 ug/mL (5.0-10.0)
[2023-07-01] MEDS ORDERED: Vancomycin HCL 750 MG in NS 100 ML IV SCH (02:32)
[2023-07-01 07:18] VITALS: BP 112/48
--- NOTE | 2023-07-01 07:43 | NUR ---
SHIFT SUMMARY VIOLETTA IS A&OX4. VSS ON RA. PAIN CONTROL HAS BEEN THE ISSUE LAST NIGHT. HER CURRENT PAIN REGIMEN DOES NOT SEEM TO BE WORKING. HER PAIN NEVER GOT BELOW 8/10. I CALLED HOSPITALIST AND LET HIM KNOW, HE SAID HE WOULD PUT IN A NEW ORDER FOR PAIN MEDICATION, BUT NEVER DID. WHEN I ASKED WHAT SHE DOES AT HOME FOR HER PAIN, SHE STATED SHE SMOKES MARIJUANA. C/O OF HER HAND THROBBING, ELEVATED ON PILLOWS. DRESSING IS C/D/I. UP INDEPENDENTLY IN ROOM. EATING SNACKS T/O NOC. BED IN LOWEST POSITION, CALL LIGHT WITHIN REACH.
[2023-07-01] MEDS ORDERED: Ketorolac Tromethamine 15mg Vial IV PRN (07:50)
[2023-07-01] MEDS ORDERED: Ketorolac Tromethamine 30mg Vial IV PRN (08:10)
[2023-07-01] MEDS ORDERED: VISBIOME 112.51 EACH PO (11:22)
[2023-07-01] MEDS ORDERED: ACET325 PO (11:22)
[2023-07-01] MEDS ORDERED: CLIN300 PO (11:22)
[2023-07-01] MEDS ORDERED: IBU600 M1 PO (11:23)
--- NOTE | 2023-07-01 11:38 | NUR ---
DISCHARGE PATIENT D/C'D TO HOME WITH FAMILY. DC INSTRUCTIONS AND EDUCATION DISCUSSED WITH PATIENT AND COPY PROVIDED. RX MEDICATIONS FAXED TO [facility]. [facility] AND FOLLOW UP WITH DR BUCHANAN IN 2 WEEKS. PATIENT DENIES ANY FURTHER QUESTIONS OR CONCERNS.
[2023-07-01] MEDS ORDERED: Acetaminophen 325 MG TABLET PO SCH (12:00)
== END 2023-07-01 11:37 | disposition home or self-care (01) | DRG 982 ==
LOC: ER 18:01 → MEDS 20:47
PROVIDERS: Internal Medicine; Orthopaedic Surgery Sports Medicine; Student in an Organized Health Care Education/Training Program; ADMIT Student in an Organized Health Care Education/Training Program
PROC: 0K9C0ZZ Drainage of Right Hand Muscle, Open Approach (ICD-10-PCS; principal; 2023-06-30 14:30)
DX: L03.113 Cellulitis of right upper limb (principal); I96 Gangrene, not elsewhere classified; L02.511 Cutaneous abscess of right hand; M65.841 Other synovitis and tenosynovitis, right hand; L03.011 Cellulitis of right finger; F17.210 Nicotine dependence, cigarettes, uncomplicated; F15.11 Other stimulant abuse, in remission; F12.90 Cannabis use, unspecified, uncomplicated
CPT/HCPCS: 36415; 73130; 73223; 80048; 80053; 80202; 81025; 83735; 85025; 85651; 86140; 87070; 87075; 87077; 87147; 87186; 87205; 96365; 96375; 99285-25; A9270; A9579; J0690; J0696; J1100; J1170; J1885; J2405; J2704; J3010; J3370; J7050; J7120

== ENCOUNTER → 2024-03-11 | Outpatient (CLI) | payer OTHER ==
[~2024-03-11] MED LIST changes: +ACET325 PO; +CLIN300 PO; +Cleocin HCl150 MG PO; +IBU600 M1 PO; +VISBIOME 112.51 EACH PO
[2024-03-14 02:58] LABS: APTIMA MEDIA TYPE Urine; C. TRACHOMATIS BY TMA Negative (Negative); N. GONORRHOEAE BY TMA Negative (Negative); SPECIMEN SOURCE Urine
== END ==
LOC: LAB SHORT 12:53 → LAB 12:53
PROVIDERS: Obstetrics & Gynecology
DX: Z11.3 Encounter for screening for infections with a predominantly sexual mode of transmission (principal)
CPT/HCPCS: 87491; 87591

== ENCOUNTER → 2024-09-15 | Outpatient (CLI) | payer OTHER | LOC: LAB SHORT 11:09 → LAB 11:09 | DX: O09.90 Supervision of high risk pregnancy, unspecified, unspecified trimester (principal); Z3A.00 Weeks of gestation of pregnancy not specified | CPT/HCPCS: 87081; 87150 ==

== ENCOUNTER 2024-10-08 05:46 | Inpatient (IN) | payer OTHER ==
[2024-10-08] VITALS (20 sets, daily range): BP systolic 111–166; BP diastolic 63–96
[~2024-10-08] VITALS: Wt 63.5 kg
[2024-10-08] MEDS ORDERED: CeFAZolin Sodium 2,000 MG in NS 100 ML IV SCH (05:55)
[2024-10-08] MEDS ORDERED: Citric Acid/Sodium Citrate 30 ML BTL PO SCH (05:55)
[2024-10-08] MEDS ORDERED: Metoclopramide HCl 5MG / ML 2ML Vial IV SCH (05:55)
[2024-10-08] MEDS ORDERED: Lactated Ringer's 1,000 ML IV SCH ×2 (05:55)
[2024-10-08 06:22] LABS: Hemoglobin 11.7 g/dL (11.5-16.0); Mean Corpuscular HGB 31.9 pg (26.0-34.0); Mean Corpuscular HGB Conc 34.4 g/dL (31.5-36.5); Mean Corpuscular Volume 93 fL (80-100); Mean Platelet Volume 12.1 fL (9.1-12.4); Platelet Count 176 K/mm3 (150-400); Red Blood Cell Count 3.67 M/mm3 (3.80-5.20)
[2024-10-08 06:52] LABS: BASOPHILS PERCENT MAN 0 % (0-2); EOSINOPHILS PERCENT MAN 0 % (0-6); LYMPHOCYTES ABSOLUTE MAN 1.39 K/mm3 (0.84-5.20); LYMPHOCYTES PERCENT MAN 9 % (21-46); MONOCYTES ABSOLUTE MAN 0.46 K/mm3 (0.16-1.47); MONOCYTES PERCENT MAN 3 % (4-13); NEUTROPHILS ABSOLUTE MAN 13.64 K/mm3 (1.96-9.15); SEG NEUTROPHILS PERCENT MAN 88 % (41-73); TOTAL CELLS COUNTED 100
[2024-10-08] MEDS ORDERED: Ondansetron HCl 2 MG / ML 2ML Vial ONE (08:09)
[2024-10-08] MEDS ORDERED: Ketorolac Tromethamine 30mg Vial ONE (08:10)
[2024-10-08] MEDS ORDERED: Phenylephrine HCl 100 MCG/ML-NS 10MLSYR (1MG/10ML) ONE (08:19)
--- NOTE | 2024-10-08 08:24 | NUR ---
10/08/24 0824 Sara Valdez FHTS PRIOR TO START OF CASE WERE 160. DELIVERY OF VIABLE FEMALE INFANT AT 0804. APGARS 9/9. WEIGHT 3350. MANUAL REMOVAL OF PLACENTA, COMPLETE. CORD BLOOD SAMPLE SENT WITH BABY'S RN.
[2024-10-08] MEDS ORDERED: Bupivacaine 0.5% HCl 5 MG/ML 30MLVIAL ONE (08:40)
--- NOTE | 2024-10-08 09:06 | NUR ---
PT ALERT AND AWAKE. JEFF ICE CHIPS. DENIES PAIN. HOLDING NB. PT HAPPY AND TALKING WITH Rod KEEN
[2024-10-08] MEDS ORDERED: Lanolin Cream TOP PRN (09:20)
[2024-10-08] MEDS ORDERED: Methylergonovine Maleate 0.2MG / ML 1ML Amp IM PRN (09:20)
[2024-10-08] MEDS ORDERED: OxyCODONE HCL 5 MG TAB PO PRN (09:20)
[2024-10-08] MEDS ORDERED: Magnesium Hydroxide Conc 10 ML UDC PO PRN (09:20)
[2024-10-08] MEDS ORDERED: Ondansetron HCl 2 MG / ML 2ML Vial IV PRN (09:20)
[2024-10-08] MEDS ORDERED: Misoprostol 200 MCG Tab PR PRN (09:20)
[2024-10-08] MEDS ORDERED: Metoclopramide HCl 10 MG Tab PO PRN (09:20)
[2024-10-08] MEDS ORDERED: Carboprost Tromethamine 250 MCG/ML 1ML Amp IM PRN (09:25)
[2024-10-08] MEDS ORDERED: OXYTOCIN/RINGER'S LACTATE 500 ML IV SCH (09:25)
[2024-10-08] MEDS ORDERED: DiphenhydrAMINE HCL 25 MG Cap PO PRN (09:25)
[2024-10-08] MEDS ORDERED: Acetaminophen 500 MG Tab PO PRN (09:25)
[2024-10-08] MEDS ORDERED: Simethicone 80 MG Chew PO PRN (09:25)
[2024-10-08] MEDS ORDERED: OXYTOCIN/RINGER'S LACTATE 500 ML IV ONE (09:27)
[2024-10-08] MEDS ORDERED: Ketorolac Tromethamine 30mg Vial IV SCH (10:00)
--- NOTE | 2024-10-08 12:26 | NUR ---
PT REQUESTING FOR PAS TO BE REMOVED. PT EDUCATED ON REASONING FOR USE OF THEM, PT VERBALIZES UNDERSTANDING BUT WOULD LIKE THEM REMOVED.
[2024-10-08] MEDS ORDERED: Methylergonovine Maleate 0.2MG / ML 1ML Amp XX ONE (13:44)
[2024-10-08] MEDS ORDERED: Docusate Sodium 100 MG Cap PO SCH (21:00)
--- NOTE | 2024-10-08 22:43 | NUR ---
AT 2240 NURSE NOTIFIED ASHLEY RANKIN PATIENT IS BRADYCARDIC IN THE 40'S. HEART RATE IRREGULAR AT 48 BPM AUSCULTATED. PATIENT REPORTS NO SYMPTOMS, ONLY INCISIONAL PAIN. PROVIDER NOTIFIED OF POPUP TO CONSIDER DRAWING LACTIC ACID AND CREATININE. STATES SHE IS NOT CONCERNED AT THIS TIME. SHE BELIEVES VITAL SIGNS EVERY 4 HOURS IS SUFFICIENT.
[2024-10-09 04:18] VITALS: BP 123/79
[2024-10-09] MEDS ORDERED: Ibuprofen 400 MG Tab PO SCH (08:00)
[2024-10-09] MEDS ORDERED: Prenatal Vit/FE Fumarate/FA 1 Tab PO SCH (09:00)
[2024-10-09 09:35] VITALS: BP 124/77
--- NOTE | 2024-10-09 10:28 | NUR ---
CONTACTED SOCIAL WORK PHONE NUMBER, NO ANSWER. CONTACTED THE ER TO EVALUATE IF SOCIAL WORK WAS IN HOUSE TODAY, THEY STATED THAT THEY HAD NOT SEEN A SUPERVISOR CORE DRILLING TODAY. CONTACTED NURSING EXCEL SPECIALIST COREY TO DETERMINE IF THERE WAS SOCIAL WORK ELECTROPLATER HELPER TODAY. NO ONE FROM CARE COORDINATION AVAILABLE.
[2024-10-09 11:08] LABS: BASOPHILS ABSOLUTE AUTO 0.03 K/mm3 (0.00-0.23); BASOPHILS PERCENT AUTO 0 % (0-2); EOSINOPHILS ABSOLUTE AUTO 0.04 K/mm3 (0.00-0.68); EOSINOPHILS PERCENT AUTO 0 % (0-6); Hematocrit 30.7 % (33.0-51.0); Hemoglobin 10.3 g/dL (11.5-16.0); IMMATURE GRAN PERCENT AUTO 1 % (0-1); LYMPHOCYTES ABSOLUTE AUTO 4.12 K/mm3 (0.84-5.20); LYMPHOCYTES PERCENT AUTO 23 % (21-46); MONOCYTES ABSOLUTE AUTO 1.37 K/mm3 (0.16-1.47); MONOCYTES PERCENT AUTO 8 % (4-13); Mean Corpuscular HGB 31.6 pg (26.0-34.0); Mean Corpuscular HGB Conc 33.6 g/dL (31.5-36.5); Mean Corpuscular Volume 94 fL (80-100); Mean Platelet Volume 12.1 fL (9.1-12.4); NEUTROPHILS ABSOLUTE AUTO 12.38 K/mm3 (1.96-9.15); NEUTROPHILS PERCENT AUTO 69 % (41-73); Platelet Count 196 K/mm3 (150-400); RDW Coefficient Variation 13.1 % (11.7-14.2); Red Blood Cell Count 3.26 M/mm3 (3.80-5.20); White Blood Cell Count 18.04 K/mm3 (4.00-11.30)
--- NOTE | 2024-10-09 11:15 | NUR ---
ATTEMPTED TO CONTACT SOCIAL WORK, LEFT A VOICEMAIL FOR THEM TO CALL BACK REGARDING PT'S DEPRESSION SCORE OF 18. DR HO CONTACTED AND NOTIFIED OF THIS, SHE STATES SHE SPOKE WITH THE PATIENT REGARDING HER SCORE AND PT STATES THAT SHE HAS ROUTINE THERAPY APPOINTMENTS SCHEDULED FOR HER MENTAL HEALTH, HER NEXT ONE BEING SCHEDULED FOR FRIDAY.
[2024-10-09 11:34] VITALS: BP 115/65
== END 2024-10-09 12:40 | disposition home or self-care (01) | DRG 787 ==
LOC: BC 05:46
PROVIDERS: ADMIT Obstetrics & Gynecology
PROC: 10D00Z1 Extraction of Products of Conception, Low, Open Approach (ICD-10-PCS; principal; 2024-10-08 07:30)
DX: O34.211 Maternal care for low transverse scar from previous cesarean delivery (principal); O99.324 Drug use complicating childbirth; F17.210 Nicotine dependence, cigarettes, uncomplicated; O99.334 Smoking (tobacco) complicating childbirth; J45.909 Unspecified asthma, uncomplicated; O99.52 Diseases of the respiratory system complicating childbirth; Z3A.39 39 weeks gestation of pregnancy; Z37.0 Single live birth; F12.90 Cannabis use, unspecified, uncomplicated; K62.89 Other specified diseases of anus and rectum; O99.62 Diseases of the digestive system complicating childbirth; Z79.899 Other long term (current) drug therapy; Z88.2 Allergy status to sulfonamides; Z91.018 Allergy to other foods
CPT/HCPCS: 36415; 85025; 86850; 86900; 86901; 86923; A9270; J1885; J2210; J2371; J2405; J2590